=== PATIENT | female | born 1990 | race Caucasian/White ===

== ENCOUNTER 2018-01-20 06:01 | Inpatient (IN) | payer BC ==
[2018-01-20] MEDS ORDERED: BUTORPHANOL 2 MG INJ IV (07:30)
[2018-01-20] MEDS ORDERED: OXYTOCIN 30 UNITS/LR 500 ML IV ×2 (07:30)
[2018-01-20] MEDS ORDERED: MISOPROSTOL 200 MCG TAB PR (07:30)
[2018-01-20] MEDS ORDERED: CARBOPROST 250 MCG INJ IM (07:30)
[2018-01-20] MEDS ORDERED: METHYLERGONOVINE 0.2 MG INJ IM (07:30)
[2018-01-20] MEDS: OXYTOCIN 30 UNITS/LR 500 ML IV ×3 (08:37→21:43)
[2018-01-20 08:52] LABS: ADD MAN DIFF? NO
[2018-01-20 09:00] LABS: WHITE BLOOD COUNT 10.8 10^3/ul (4.8-10.8)
[2018-01-20 09:00] LABS: BASOPHILS % 0.2 % (0.0-2.0); EOSINOPHILS % 0.3 % (0.0-7.0); HEMATOCRIT 37.7 % (37.0-47.0); HEMOGLOBIN 12.5 g/dl (12.0-16.0); LYMPHOCYTES # 1.9 10^3/ul (0.8-2.9); LYMPHOCYTES % 17.4 % (15.0-51.0); MEAN CORPUSCULAR HEMOGLOBIN 29.9 pg (29.0-33.0); MEAN CORPUSCULAR HGB CONC 33.2 g/dl (32.0-37.0); MEAN CORPUSCULAR VOLUME 90.2 fl (82.0-101.0); MEAN PLATELET VOLUME 11.5 fl (7.4-10.4); MONOCYTE # 0.8 10^3/ul (0.3-0.9); MONOCYTES % 7.6 % (0.0-11.0); NEUTROPHILS % 74.1 % (39.0-77.0); PLATELET COUNT 287 10^3/UL (140-415); RED BLOOD COUNT 4.18 10^6/ul (4.20-5.40); RED CELL DISTRIBUTION WIDTH 13.8 % (11.5-14.5)
[2018-01-20 09:19] LABS: INR 0.84; PROTIME 11.6 Sec (11.9-14.9); PT RATIO 0.9
[2018-01-20 09:20] LABS: PARTIAL THROMBOPLASTIN TIME 26.3 Sec (23.0-35.0)
[2018-01-20] MEDS: LACTATED RINGER'S 1,000 ML IV ×3 (13:37→15:34)
[2018-01-20] MEDS ORDERED: FENTAnyl 2MCG/ML-ROPIV 0.2% 100 ML (14:24)
[2018-01-20] MEDS ORDERED: DIPHENHYDRAMINE 50 MG INJ IV (15:00)
[2018-01-20] MEDS ORDERED: NALOXONE (0.4 MG/ML) INJ IV (15:00)
[2018-01-20] MEDS ORDERED: TRIMETHOBENZAMIDE 100 MG/ML VIAL IM (15:00)
[2018-01-20] MEDS ORDERED: ONDANSETRON 4 MG INJ IV ×2 (15:00→21:30)
[2018-01-20] MEDS ORDERED: FENTAnyl 2MCG/ML-ROPIV 0.2% 100 ML BAG EPI (15:00)
[2018-01-20 20:36] LABS: HEPATITIS B SURFACE ANTIGEN NEGATIVE (NEGATIVE)
[2018-01-20] MEDS ORDERED: HYDROCODONE/APAP (5/325) TAB PO ×2 (21:30)
[2018-01-20] MEDS ORDERED: OXYCODONE/ASPIRIN (4.88/325) TAB PO ×2 (21:30)
[2018-01-20] MEDS: LANOLIN 7 GM TUBE TOP (21:42)
[2018-01-20] MEDS: BENZOCAINE 20% 56 ML SPRAY TOP (21:42)
[2018-01-20] MEDS: WITCH HAZEL/GLYCERIN PAD PR (21:42)
[2018-01-20] MEDS: ACETAMINOPHEN 325 MG TAB PO (21:42)
[2018-01-20 22:39] LABS: RAPID PLASMA REAGIN NONREACTIVE (NR)
[2018-01-21] MEDS: IBUPROFEN 600 MG TAB PO ×4 (00:05→17:55)
[2018-01-21] MEDS: MINERAL OIL LIGHT 10 ML VIAL TOP (00:38)
[2018-01-21] MEDS: LIDOCAINE 0.5% (SDV) 50 ML INJ INFIL (00:38)
[2018-01-21] MEDS: SENNA/DOCUSATE NA (8.6MG/50MG) TAB PO ×2 (08:39→21:04)
[2018-01-21 08:52] LABS: ADD MAN DIFF? NO
[2018-01-21 09:03] LABS: WHITE BLOOD COUNT 18.4 10^3/ul (4.8-10.8)
[2018-01-21 09:03] LABS: BASOPHILS % 0.2 % (0.0-2.0); EOSINOPHILS % 0.1 % (0.0-7.0); HEMATOCRIT 35.8 % (37.0-47.0); LYMPHOCYTES # 2.1 10^3/ul (0.8-2.9); LYMPHOCYTES % 11.3 % (15.0-51.0); MEAN CORPUSCULAR HEMOGLOBIN 30.2 pg (29.0-33.0); MEAN CORPUSCULAR HGB CONC 33.5 g/dl (32.0-37.0); MEAN CORPUSCULAR VOLUME 90.2 fl (82.0-101.0); MEAN PLATELET VOLUME 11.7 fl (7.4-10.4); MONOCYTE # 0.8 10^3/ul (0.3-0.9); MONOCYTES % 4.5 % (0.0-11.0); NEUTROPHIL # 15.3 10^3/ul (1.6-7.5); NEUTROPHILS % 83.5 % (39.0-77.0); PLATELET COUNT 255 10^3/UL (140-415); RED BLOOD COUNT 3.97 10^6/ul (4.20-5.40)
[2018-01-22] MEDS: IBUPROFEN 600 MG TAB PO ×3 (00:01→11:29)
[2018-01-22] MEDS: MEASLES,MUMPS,RUBELLA VACCINE INJ SC* (08:40)
[2018-01-22] MEDS: SENNA/DOCUSATE NA (8.6MG/50MG) TAB PO (09:33)
== END 2018-01-22 14:44 | disposition home or self-care (01) | DRG 807 ==
LOC: OBT 06:01 → L-D 06:03 → OBT 07:25 → L-D 07:20 → PP1 20:39
PROVIDERS: Obstetrics & Gynecology
PROC: 10E0XZZ Delivery of Products of Conception, External Approach (ICD-10-PCS; principal; 2018-01-20)
DX: O42.02 Full-term premature rupture of membranes, onset of labor within 24 hours of rupture (principal); O69.81X0 Labor and delivery complicated by cord around neck, without compression, not applicable or unspecified; O77.0 Labor and delivery complicated by meconium in amniotic fluid; Z37.0 Single live birth; Z3A.38 38 weeks gestation of pregnancy
CPT/HCPCS: 62319; 85025; 85610; 85730; 86592; 86850; 86900; 86901; 87340; 99464